=== PATIENT | female | born 2000 | race Caucasian/White ===

== ENCOUNTER 2020-08-04 08:14 | Emergency (ER) | payer OTHER, SELFPAY ==
[2020-08-04 08:16] VITALS: BP 145/68; PULSE 82; RESP 14; TEMP 37; O2SAT 99; BMI 25.4
[2020-08-04 08:28] VITALS: BP 145/68; PULSE 82; RESP 14; TEMP 37; O2SAT 99
--- NOTE | 2020-08-04 08:44 | EX.ED.DYSGE1 ---
HPI History of Present Illness Chief Complaint: Abscess Informant: patient Narrative Narrative: Patient is a 20-year-old previously healthy female who presents to the emergency department for suspected abscesses. She states she first noticed this this past weekend. There is one spot on her right shoulder 1 part on the middle of her chest. She is never had this before. Has been progressively getting worse. She has been using warm compresses over the area which has not been giving significant relief. She denies any known history of MRSA. No fevers or chills. Denies any chest pain or shortness of breath. No abdominal pain or nausea/vomiting. She is not aware of any other lesions. She thought initially she was bit by something but did not actually see any insect. PFSH PFSH Home Medications NK 08/04/20 [History Last Taken Unknown] cephalexin 500 mg PO Q6H 7 Days #28 cap 08/04/20 [Rx Last Taken Unknown] sulfamethoxazole-trimethoprim [Bactrim DS] 1 tab PO BID #7 tab 08/04/20 [Rx Last Taken Unknown] Allergy/AdvReac Type Severity Reaction Status Date / Time amoxicillin [From Augmentin] Allergy Hives Verified 08/04/20 08:16 clavulanic acid Allergy Hives Verified 08/04/20 08:16 [From Augmentin] Social History Smoking Status: Never smoker ROS ROS ED Constitutional Constitutional ED: Denies chills or fever(s) Eyes Eyes: Denies change in vision ENT ENT ED: Denies epistaxis or rhinorrhea Cardiovascular Cardiovascular: Denies chest pain or palpitations Respiratory/Chest Respiratory/Chest: Denies cough, dyspnea or dyspnea on exertion Gastrointestinal Gastrointestinal: Denies abdominal pain, diarrhea, nausea or vomiting Musculoskeletal Musculoskeletal: Denies back pain or neck pain Integumentary Reports abscess Neurologic Neurologic: Denies dizziness, headache(s) or weakness EXAM Physical Exam Const Vital Signs: 08/04/20 08:16 08/04/20 08:28 08/04/20 09:16 Temperature 98.6 F 98.6 F Temperature Source Temporal Temporal Pulse Rate 82 82 74 Respiratory Rate 14 14 15 Blood Pressure 145/68 H 145/68 H 120/66 Blood Pressure Mean 93 93 Pulse Ox 99 99 98 Positive well nourished and well developed General Appearance ED: well developed and NAD HEENT Reports normocephalic and head/scalp atraumatic Eyes PERRL and EOMs intact bilaterally Neck supple Resp normal respiratory effort and clear to auscultation bilaterally Auscultation: Negative for rales, rhonchi or wheezes Cardio regular rate, regular rhythm and no murmurs Extremity normal to inspection General Extremety ED: Negative for edema or tenderness General Extremity: Negative for edema Neuro CN's II-XII intact bilaterally and no sensory deficits noted Sensorium / Orientation: alert Motor Exam: strength 5/5 throughout Psych mental status grossly normal Skin Skin Narrative: Pustule to right anterior shoulder. No drainage. There does appear to be larger abscess with induration to sternal region. No active drainage there either. MDM MDM MDM Narrative Medical decision making narrative: Patient presents to the ED for suspected abscess. On physical exam she does have a pustule to the right shoulder and it does appear to be an abscess of the skin over the sternum. Her vital signs are within normal limits. No systemic signs of infection. I did perform bedside ultrasound which showed a very small fluid collection. At this time I do not feel incision and drainage would be appropriate given the size of the fluid collection. Will trial oral antibiotics. She is placed on Bactrim and Keflex for 7 days. She is to follow-up with her PCP. She already matt lines around the surrounding area. She understands if it spreads passes or she develop systemic symptoms she needs to return to the emergency department. At this time she is discharged home in stable condition. All questions are answered. Discharge Plan Triage Chief Complaint: Abscess ED Provider: Delvin Boyd Dx/Rx/DC Orders Clinical Impression: Abscess of skin Instructions: ED Abscess Antibiotic Treatment Only Prescriptions: New sulfamethoxazole-trimethoprim [Bactrim DS] 800-160 mg tablet 1 tab PO BID Qty: 7 RF: 0 cephalexin 500 mg capsule 500 mg PO Q6H 7 Days Qty: 28 RF: 0 No Action NK RF: 0 Primary Care Provider: Care Physician,No Primary Activity Restrictions/Additional Instructions: Please follow-up with your PCP in the next 3 to 5 days for wound check. Disposition Disposition: Home, self care Discharge Date/Time: 08/04/20 09:17
[2020-08-04 09:16] VITALS: BP 120/66; PULSE 74; RESP 15; O2SAT 98
== END 2020-08-04 09:17 | disposition home or self-care (01) ==
LOC: ED 09:10
PROVIDERS: Emergency Provider Emergency Medicine
DX: L02.213 Cutaneous abscess of chest wall (principal)
CPT/HCPCS: 99282

== ENCOUNTER 2020-08-17 08:51 | Outpatient (RCR) | payer OTHER, SELFPAY | END 2020-08-22 23:59 | LOC: WC 08:51 | PROVIDERS: Visit Provider Nurse Practitioner Family | DX: Z09 Encounter for follow-up examination after completed treatment for conditions other than malignant neoplasm (principal) ==